=== PATIENT | female | born 1965 | race Caucasian/White ===

== ENCOUNTER 2018-03-22 11:32 | Outpatient (CLI) | payer OTHER | END 2018-03-22 11:33 | disposition home or self-care (01) | LOC: BICMAMMO 11:32 | PROVIDERS: ATTEND Obstetrics & Gynecology | DX: Z12.31 Encounter for screening mammogram for malignant neoplasm of breast (principal); R92.1 Mammographic calcification found on diagnostic imaging of breast | CPT/HCPCS: 77063; 77067 ==

== ENCOUNTER 2019-02-16 13:56 | Inpatient (IN) | payer OTHER ==
[2019-02-16 14:28] LABS: #Eosinphils 0.1 thou/uL (0.0-0.7); #Lymphocytes 2.2 thou/uL (1.20-3.40); #Monocytes 1.6 thou/uL (0.11-0.59); #Neutrophils 13.1 thou/uL (1.40-6.50); %Basophils 0.1 % (0.0-1.0); %Eosinophils 0.3 % (0.0-10.0); %Lymphocytes 12.8 % (21.0-51.0); %Monocytes 9.4 % (0.0-10.0); %Neutrophils 77.3 % (42.0-75.0); Hemoglobin 14.6 g/dL (12.0-16.0); Mean Corpuscular HGB CONC 33.5 g/dL (32.0-36.0); Mean Corpuscular Hemoglobin 29.4 pg (27.0-31.0); Mean Corpuscular Volume 87.7 fL (78.0-98.0); Mean Platelet Volume 8.8 fL (7.4-10.4); Platelet Count 243 thou/uL (130-400); RBC Distribution Width 12.2 % (11.5-14.5); Red Blood Cell (RBC) Count 4.96 mill/uL (4.20-5.40)
[2019-02-16 14:50] LABS: ALT (SGPT) 15 U/L (8-55); AST (SGOT) 11 U/L (5-34); Albumin 4.4 g/dL (3.5-5.0); Alkaline Phosphatase 132 U/L (40-150); Anion Gap 12 mmol/L (10-20); BUN (Urea Nitrogen) 8 mg/dL (9.8-20.1); Bilirubin, Total 0.8 mg/dL (0.2-1.2); Calc. Creatinine Clearance 0 mL/min (70-130); Calcium 9.4 mg/dL (7.8-10.44); Carbon Dioxide 26 mmol/L (22-29); Chloride 102 mmol/L (98-107); Estimated GFR-MDRD 87; Globulin 3.1 g/dL (2.4-3.5); Glucose 99 mg/dL (70-105); Lipase 16 U/L (8-78); Potassium 3.7 mmol/L (3.5-5.1); Protein, Total 7.5 g/dL (6.0-8.3); Sodium 136 mmol/L (136-145)
[2019-02-16 15:00] LABS: Pregnancy Test - Urine (BHCG) Negative (Negative); Pregu Control Background? CLEAR/WHITE (CLR/WHITE); Pregu Control Bar Appear? YES (CONTROL BAR)
[2019-02-16 15:01] LABS: Bilirubin Negative (Negative); Blood, Urine Trace (Negative); Clarity Clear (Clear); Glucose, Urine (Dipstick) Normal (Negative); Leukocyte Negative Leu/uL (Negative); Nitrite Negative (Negative); Protein, Urine (Dipstick) 30 mg/dL (Neg-Trace); Specific Gravity 1.031 (1.002-1.036); Squamous Epithelial 0-3 HPF (0-3); Urobilinogen Normal mg/dL (Less than 2); WBC/HPF 0-3 HPF (0-3)
[2019-02-16 15:02] LABS: Bacteria/HPF 1+ HPF (None Seen)
--- NOTE | 2019-02-16 15:38 | CT ---
EXAM: Abdomen and pelvic CT scan with contrast: HISTORY: Abdominal pain and fever COMPARISON: None FINDINGS: The visualized lung bases are clear. Liver: Unremarkable. Gallbladder:Unremarkable. Pancreas:Unremarkable Spleen:Unremarkable. Adrenal glands:Unremarkable. Kidneys:No renal calculus or acute obstruction. No solid or cystic renal mass. Colonic diverticulosis particularly in the sigmoid colon with some focal bowel wall thickening and pe ricolonic fat stranding evidence for acute diverticulitis without evidence for free intraperitoneal air or drainable abscess. No CT evidence for acute appendicitis. The urinary bladder is unremarkable. Reproductive system:Unremarkable No abscess, adenopathy, or abnormal fluid collection within the abdomen or pelvis. IMPRESSION: Sigmoid colon diverticulitis without evidence for drainable abscess or abnormal extraluminal gas or f ree intraperitoneal air.
[2019-02-16] MEDS ORDERED: Morphine 4 MG/ML VIAL ONE (15:56)
[2019-02-16] MEDS ORDERED: Ondansetron PF 4 MG/2 ML Vial ONE (15:57)
[2019-02-16] MEDS ORDERED: metroNIDAZOLE 500 MG in Premix Bag 1 BAG IVPB SCH (16:15)
--- NOTE | 2019-02-16 16:19 | PDOC.FPRHP ---
- History of Present Illness Chief Complaint: abdominal pain History of Present Illness: Ms. Vegas presents to ED after 1 week of intermittent abdominal pain yesterday pain became more constant, 7/10 releived by tylenol. associated fever reported as high as 102. not tolerating much food today, has been drinking water ok, reports normal bowel movements recently. no episodes like this before , no hx of abdominal surgery or colonoscopy. denies chills, syncope, dysuria, or hematochezia ED Course: cbc, cmp, CT ab/pel levaquin, metronidazole, 1L NS, zofran, morphine - Allergies/Adverse Reactions Allergies Allergy/AdvReac Type Severity Reaction Status Date / Time No Known Allergies Allergy Unverified 02/16/19 16:00 - Home Medications Medication Instructions Recorded Confirmed Type FLUoxetine HCl [Fluoxetine HCl] 20 mg PO Q2DAYS 02/16/19 02/16/19 History - History PMHx: depression PSHx: none FHx:NC Social: no TAD - Review of Systems General: reports: fever/chills, weight/appetite/sleep changes Eyes: denies: vision changes ENT: denies: nasal congestion Respiratory: denies: cough, shortness of breath Cardiovascular: denies: chest pain, edema Gastrointestinal: reports: nausea, abdominal pain. denies: diarrhea, constipation Genitourinary: denies: incontinence, dysuria Skin: denies: rashes Musculoskeletal: denies: pain, tenderness Neurological: denies: numbness, syncope - Vital signs 130/74, Pulse: 94, Resp: 17 (Non-Labored), Temp: 98.8 (Oral), Pain: 8, O2 sat: 100 on Room Air - Physical Exam Constitutional: NAD HEENT: normocephalic and atraumatic, grossly normal vision, grossly normal hearing Neck: trachea midline Heart: no edema Lungs: no retractions Abdomen: soft, no masses/distention, other (ttp) Musculoskeletal: normal structure, normal tone Neurological: no focal deficit, CN II-XII intact Skin: no rash/lesions, good turgor Heme/Lymphatic: no unusual bruising or bleeding Psychiatric: normal mood and affect FMR H&P: Results - Labs Result Diagrams: 02/16/19 14:14 02/16/19 14:14 Lab results: WBC 17.0 thou/uL (4.8-10.8) H 02/16/19 14:14 Hgb 14.6 g/dL (12.0-16.0) 02/16/19 14:14 Hct 43.5 % (36.0-47.0) 02/16/19 14:14 MCV 87.7 fL (78.0-98.0) 02/16/19 14:14 Plt Count 243 thou/uL (130-400) 02/16/19 14:14 Neutrophils % 77.3 % (42.0-75.0) H 02/16/19 14:14 Sodium 136 mmol/L (136-145) 02/16/19 14:14 Potassium 3.7 mmol/L (3.5-5.1) 02/16/19 14:14 Chloride 102 mmol/L (98-107) 02/16/19 14:14 Carbon Dioxide 26 mmol/L (22-29) 02/16/19 14:14 BUN 8 mg/dL (9.8-20.1) L 02/16/19 14:14 Creatinine 0.70 mg/dL (0.6-1.1) 02/16/19 14:14 Glucose 99 mg/dL (70-105) 02/16/19 14:14 Calcium 9.4 mg/dL (7.8-10.44) 02/16/19 14:14 Total Bilirubin 0.8 mg/dL (0.2-1.2) 02/16/19 14:14 AST 11 U/L (5-34) 02/16/19 14:14 ALT 15 U/L (8-55) 02/16/19 14:14 Alkaline Phosphatase 132 U/L (40-150) 02/16/19 14:14 Serum Total Protein 7.5 g/dL (6.0-8.3) 02/16/19 14:14 Albumin 4.4 g/dL (3.5-5.0) 02/16/19 14:14 Lipase 16 U/L (8-78) 02/16/19 14:14 Urine Ketones Negative mg/dL (Negative) 02/16/19 14:13 Urine Blood Trace (Negative) A 02/16/19 14:13 Urine Nitrite Negative (Negative) 02/16/19 14:13 Ur Leukocyte Esterase Negative Ranjana/uL (Negative) 02/16/19 14:13 Urine RBC 4-6 HPF (0-3) A 02/16/19 14:13 Urine WBC 0-3 HPF (0-3) 02/16/19 14:13 Ur Squamous Epith Cells 0-3 HPF (0-3) 02/16/19 14:13 Urine Bacteria 1+ HPF (None Seen) 02/16/19 14:13 FMR H&P: A/P - Problem List (1) Diverticulitis Current Visit: Yes Status: Acute Code(s): K57.92 - DVTRCLI OF INTEST, PART UNSP, W/O PERF OR ABSCESS W/O BLEED (2) Leukocytosis Current Visit: Yes Status: Acute Code(s): D72.829 - ELEVATED WHITE BLOOD CELL COUNT, UNSPECIFIED (3) Depression Current Visit: Yes Status: Acute Code(s): F32.9 - MAJOR DEPRESSIVE DISORDER , SINGLE EPISODE, UNSPECIFIED - Plan Diverticulitis - wbc elevation, reported high fever, CT findings c/w - s/p levaquin/metronidazole and 1L NS in ED - transition to single agent- zosyn - IVF, clear liquid diet - pain control Leukocytosis - likely 2/2 above - repeat cbc in am depression - continue home meds ppx: lovenox pcp: rosita dispo: iv abx therapy for 48hrs, FMR H&P: Upper Level - Plan Date/Time: 02/16/19 1616 I, [], have evaluated this patient and agree with findings/plan as outlined by quality assurance intern resident. Pertinent changes/additions are listed here. Addendum - Attending - Attending Attestation Date/Time: 02/16/191810 I personally evaluated the patient and discussed the management with Dr. Ashby I agree with the History, Examination, Assessment and Plan documented above with any addition or exceptions noted below- 53 yo female with h/o depression presents c/o diffuse abdominal pain for the last week with associated fever to 102.6 at night. Denies any N/V. Has had some constipation which is unusual for her and states that she feels bloated. Has not had similar pain in the past though she does report that the pain has been intermittent for last 2-3 months and this episode was much worse ritika past. Has never had a colonoscopy. PMH/PSH/ Meds/SH reviewed and agree with resident's documentation. T98.8 P 94 BP 130/ 74 RR17 Exam repeated by me and agree with resident's findings. Labs: WBC=17.0 , H/H 14.6/43.5, Kup=566, Fq=344, K=3.7, Ga=268, CO2=26, BUN/Cr= 8/0.70, Gluc=99 , AST/ALT=11/15, CT abd/pelvis- sigmoid diverticulitis; no evidence of abscess. A/P: 1) Diverticulitis- Place in obs; continue cipro and flagyl. Low residual diet.
[2019-02-16] MEDS ORDERED: metroNIDAZOLE 500 MG/100 ML BAG ONE (16:21)
[2019-02-16] MEDS ORDERED: ISOVUE-370 76%-LOCM 1 ML ONE (16:41)
[2019-02-16] MEDS ORDERED: Ondansetron PF 4 MG/2 ML Vial IVP PRN (17:37)
[2019-02-16] MEDS ORDERED: Ondansetron ODT 4 MG TAB PO PRN (17:37)
[2019-02-16] MEDS ORDERED: Morphine 2 MG/ML SYRINGE SLOW IVP PRN (17:37)
[2019-02-16] MEDS ORDERED: Acetaminophen 325 MG TAB PO PRN (17:37)
[2019-02-16] MEDS: Ibuprofen 800 MG TAB PO PRN (17:57)
[2019-02-16] MEDS: Lactated Ringer's 1,000 ML IV SCH (18:01)
[2019-02-16 18:22] VITALS: BMI 31.5
[2019-02-16] MEDS: Piperacillin/Tazobactam 3.375 GM in Sodium Chloride 0.9% 100 ML IVPB SCH (19:15)
[2019-02-17] MEDS: Piperacillin/Tazobactam 3.375 GM in Sodium Chloride 0.9% 100 ML IVPB SCH ×2 (00:34→06:47)
[2019-02-17] MEDS: Lactated Ringer's 1,000 ML IV SCH (02:59)
--- NOTE | 2019-02-17 05:55 | PDOC.FM ---
- Subjective Subjective: Patient is doing well this morning. She still endorses abdominal tenderness. She states she is passing gas, sometimes with diarrhea. She denies nausea, vomiting, chest pain, shortness of breath. - Objective MAR Reviewed: Yes Vital Signs & Weight: Vital Signs (12 hours) Temp Pulse Resp BP Pulse Ox 02/17/19 03:56 97.8 F 79 18 118/78 96 02/17/19 00:10 98.2 F 88 18 109/72 95 02/16/19 20:00 96 02/16/19 19:27 98.3 F 93 20 111/62 96 Weight Weight 91.308 kg Result Diagrams: 02/17/19 05:23 02/17/19 05:23 Phys Exam - Physical Examination Constitutional: NAD HEENT: moist MMs, sclera anicteric Neck: no nodes, supple, full ROM Respiratory: no wheezing, no rales, no rhonchi, clear to auscultation bilateral Cardiovascular: RRR, no significant murmur, no rub Gastrointestinal: soft, no distention TTP in lower quadrants. Hypoactive bowel sounds. Musculoskeletal: no edema, pulses present Neurological: non-focal, moves all 4 limbs Psychiatric: normal affect, A&O x 3 Skin: no rash, cap refill <2 seconds Dx/Plan - Plan Plan: Diverticulitis wbc elevation, reported fever of 102.8, chills, CT findings consistent with diverticulitis. Received Cipro/Flagyl in the ED. The team yesterday opted for monotherapy with IV zosyn yesterday. However, we will transition back to Cipro/Flagyl today in hopes of sending her home with po antibiotics. IVF, clear liquid diet, advance as tolerated. pain control with tylenol and motrin. Leukocytosis likely 2/2 above repeat cbc in am Anxiety +/- Depression, chronic continue fluoxetine 20mg q OD. Dipso: Stable, inpatient VTE Pps: lovenox PCP: Yasir Cardosoum - Attending - Attending Attestation Date/Time: 02/17/19 0911 I personally evaluated the patient and discussed the management with Dr. Foss. I agree with the History, Examination, Assessment and Plan documented above with any addition or exceptions noted below. The patient has some abdominal distention and frequent diarrhea. Will transition to cipro and flagyl. Increase IV fluids.
[2019-02-17 06:06] LABS: #Eosinphils 0.2 thou/uL (0.0-0.7); #Monocytes 1.1 thou/uL (0.11-0.59); #Neutrophils 7.3 thou/uL (1.40-6.50); %Basophils 0.2 % (0.0-1.0); %Eosinophils 1.5 % (0.0-10.0); %Lymphocytes 18.8 % (21.0-51.0); %Neutrophils 69.4 % (42.0-75.0); Hemoglobin 12.8 g/dL (12.0-16.0); Mean Corpuscular HGB CONC 33.5 g/dL (32.0-36.0); Mean Corpuscular Hemoglobin 30.1 pg (27.0-31.0); Mean Corpuscular Volume 89.8 fL (78.0-98.0); Mean Platelet Volume 9.1 fL (7.4-10.4); Platelet Count 194 thou/uL (130-400); RBC Distribution Width 12.3 % (11.5-14.5); Red Blood Cell (RBC) Count 4.27 mill/uL (4.20-5.40); White Blood Cell (WBC) Count 10.5 thou/uL (4.8-10.8)
[2019-02-17 06:32] LABS: ALT (SGPT) 13 U/L (8-55); AST (SGOT) 11 U/L (5-34); Albumin 3.6 g/dL (3.5-5.0); Alkaline Phosphatase 103 U/L (40-150); Anion Gap 14 mmol/L (10-20); BUN (Urea Nitrogen) 7 mg/dL (9.8-20.1); Bilirubin, Total 0.7 mg/dL (0.2-1.2); Calc. Creatinine Clearance 133 mL/min (70-130); Calcium 8.7 mg/dL (7.8-10.44); Carbon Dioxide 26 mmol/L (22-29); Chloride 106 mmol/L (98-107); Estimated GFR-MDRD 88; Globulin 2.5 g/dL (2.4-3.5); Glucose 93 mg/dL (70-105); Potassium 4.5 mmol/L (3.5-5.1); Protein, Total 6.1 g/dL (6.0-8.3); Sodium 141 mmol/L (136-145)
[2019-02-17] MEDS: Ibuprofen 800 MG TAB PO PRN ×2 (08:41→16:49)
[2019-02-17] MEDS: Enoxaparin Sodium 40 MG/0.4 ML SYRINGE SC SCH ×2 (08:41→08:43)
[2019-02-17] MEDS ORDERED: Cipro 250 MG TAB PO SCH ×2 (09:53→21:00)
[2019-02-17] MEDS ORDERED: metroNIDAZOLE 500 MG TAB PO SCH ×3 (09:53→15:00)
[2019-02-17] MEDS ORDERED: Ciprofloxacin 500 MG TAB PO SCH (10:15)
[2019-02-17] MEDS: Sodium Chloride 0.9% 1,000 ML IV SCH ×2 (11:19→21:10)
[2019-02-17] MEDS: Lactinex Tablet PO SCH (11:19)
[2019-02-17] MEDS: FLUoxetine HCl 20 MG CAP PO SCH (11:53)
[2019-02-17] MEDS: metroNIDAZOLE 500 MG TAB PO SCH ×2 (15:35→21:11)
[2019-02-17] MEDS: Ciprofloxacin 500 MG TAB PO SCH (21:11)
[2019-02-18] MEDS: Ciprofloxacin 500 MG TAB PO SCH ×2 (05:51→20:03)
[2019-02-18] MEDS: Sodium Chloride 0.9% 1,000 ML IV SCH ×2 (05:54→16:45)
--- NOTE | 2019-02-18 05:57 | PDOC.FM ---
- Subjective Subjective: Ms. Vegas is doing well this morning, she reports decreasing abdominal pain and about the same amount of diarrhea as yesterday. She overall is feeling slightly better. She denies nausea, vomiting, and is tolerating food well. She ate grilled cheese and pizza last night. She is tolerating oral antibiotics and has not required pain medication. - Objective MAR Reviewed: Yes Vital Signs & Weight: Vital Signs (12 hours) Temp Pulse Resp BP Pulse Ox 02/17/19 20:00 94 L 02/17/19 19:23 97.9 F 84 18 123/77 94 L Weight Weight 91.308 kg I&O: 02/16/19 02/17/19 02/18/19 06:59 06:59 06:59 Intake Total 1549 Balance 1549 Result Diagrams: 02/17/19 05:23 02/17/19 05:23 Phys Exam - Physical Examination Constitutional: NAD HEENT: moist MMs, sclera anicteric Neck: supple, full ROM Respiratory: no wheezing, no rales, no rhonchi, clear to auscultation bilateral Cardiovascular: RRR, no significant murmur, no rub Gastrointestinal: soft, non-tender, positive bowel sounds mild distention, she says this may be normal for her. Musculoskeletal: no edema, pulses present Neurological: non-focal, normal sensation, moves all 4 limbs Psychiatric: normal affect, A&O x 3 Skin: no rash, normal turgor Dx/Plan - Plan Plan: Plan: Diverticulitis Cipro/Flagyl po Received 1 dose of Cipro/Flagyl in the ED IV. Received 3 IV doses of Zosyn. pain control with tylenol and motrin. NS @ 100mL/hr. Probiotics for diarrhea. Will likely discharge today with po antibiotics and follow up with PCP next week. Leukocytosis, resolved Anxiety, chronic continue fluoxetine 20mg q OD. Dipso: Stable, inpatient VTE Pps: lovenox PCP: Yasir Alcaraz - Attending - Attending Attestation Date/Time: 02/18/191916 I personally evaluated the patient and discussed the management with Dr. Foss. I agree with the History, Examination, Assessment and Plan documented above with any addition or exceptions noted below. The patient had 10 episodes of diarrhea in a few hours this morning. Getting stool studies. Will continue iv fluids. Likely home tomorrow if infectious diarrhea is ruled out.
[2019-02-18] MEDS: Lactinex Tablet PO SCH (08:15)
[2019-02-18] MEDS: metroNIDAZOLE 500 MG TAB PO SCH ×3 (08:15→20:47)
[2019-02-18] MEDS: Enoxaparin Sodium 40 MG/0.4 ML SYRINGE SC SCH (08:18)
[2019-02-19] MEDS: Ciprofloxacin 500 MG TAB PO SCH (05:36)
--- NOTE | 2019-02-19 05:48 | PDOC.FM ---
- Subjective Subjective: Patient states she is feeling much better this morning. No more episode of diarrhea overnight. Was able to tolerate PO intake of solid foods last night for dinner with mild nausea. No complaints voiced this morning. - Objective Vital Signs & Weight: Vital Signs (12 hours) Temp Pulse Resp BP Pulse Ox 02/18/19 19:30 98.3 F 83 20 133/69 94 L Weight Weight 91.308 kg I&O: 02/17/19 02/18/19 02/19/19 06:59 06:59 06:59 Intake Total 1549 2700 Balance 1549 2700 Result Diagrams: 02/17/19 05:23 02/17/19 05:23 Phys Exam - Physical Examination Constitutional: NAD HEENT: moist MMs, sclera anicteric Neck: no JVD, supple, full ROM Respiratory: no wheezing, no rales, no rhonchi, clear to auscultation bilateral Cardiovascular: RRR, no significant murmur Gastrointestinal: soft, no distention, positive bowel sounds mildly TTP over LLQ with no guarding or rebound Musculoskeletal: no edema, pulses present Neurological: normal sensation, moves all 4 limbs Psychiatric: normal affect, A&O x 3 Skin: no rash, normal turgor Dx/Plan (1) Anxiety Code(s): F41.9 - ANXIETY DISORDER, UNSPECIFIED Status: Acute (2) Diverticulitis Code(s): K57.92 - DVTRCLI OF INTEST, PART UNSP, W/O PERF OR ABSCESS W/O BLEED Status: Acute (3) Leukocytosis Code(s): D72.829 - ELEVATED WHITE BLOOD CELL COUNT, UNSPECIFIED Status: Acute Qualifiers: Leukocytosis type: unspecified Qualified Code(s): D72.829 - Elevated white blood cell count, unspecified - Plan Plan: Patient is a 53yo Female with PMHx of Depression who presents with abdominal pain: #Diverticulitis -Cipro & Flagyl po -Received 1 dose of Cipro/Flagyl in the ED IV. Received 3 IV doses of Zosyn. -pain control with tylenol and motrin. -NS @ 100mL/hr. -Probiotics for diarrhea. -Stool studies negative for infectious organisms, FOBT positive likely d/t diverticulitis #Leukocytosis, resolved #Anxiety, chronic -continue home Fluoxetine 20mg q OD. Code: FULL Diet: Regular as of 02/17 VTE Pps: lovenox PCP: Yasir Dispo: Stable, admitted to inpatient with likely discharge home today with po antibiotics and follow up with PCP next week. Addendum - Attending - Attending Attestation Date/Time: 02/19/19 0690 I personally evaluated the patient and discussed the management with Dr. Gunn. I agree with the History, Examination, Assessment and Plan documented above with any addition or exceptions noted below. Pt's diarrhea has improved. She is tolerating a diet. Ready to d/c home on cipro and flagyl
[2019-02-19] MEDS: FLUoxetine HCl 20 MG CAP PO SCH (08:59)
[2019-02-19] MEDS: Lactinex Tablet PO SCH (08:59)
[2019-02-19] MEDS: metroNIDAZOLE 500 MG TAB PO SCH (08:59)
[2019-02-19] MEDS: Enoxaparin Sodium 40 MG/0.4 ML SYRINGE SC SCH (08:59)
[2019-02-19 11:37] VITALS: BP 136/79; TEMP 98.5
--- NOTE | 2019-02-22 10:14 | DIS ---
DATE OF ADMISSION: 02/16/2019 DATE OF DISCHARGE: 02/19/2019 RESIDENT: Skylar Foss MD ADMITTING ATTENDING: Heidi Vanegas MD. CONSULTS: None. PROCEDURES: None. PRIMARY DIAGNOSIS: Diverticulitis. SECONDARY DIAGNOSIS: Anxiety. DISCHARGE MEDICATIONS: 1. Fluoxetine 20 mg every other day. 2. Ciprofloxacin 500 mg b.i.d. for 5 days. 3. Flagyl 500 mg t.i.d. for 5 days. 4. Lactobacillus one tablet p.o. daily. DISCONTINUED MEDICATIONS: None. HISTORY OF PRESENT ILLNESS: Ms. Vegas is a previously healthy 53-year-old female who came to the ER for one week of increasing intermittent abdominal pain which the day prior to admission became constant, 7/10, with associated fever as high as 102 at home. She is not tolerating the food well, but was able to tolerate liquids. She reports normal bowel movement; however, she has a longstanding history of chronic diarrhea for which she does not . She has never had symptoms like this before. No history of abdominal surgeries. No prior colonoscopy. On admission, her white count was 17, otherwise unremarkable. CT abdomen and pelvis showed sigmoid colon diverticulitis without evidence of abscess or extraluminal gas or free air. The patient was given IV antibiotics in hospital and transitioned to p.o. antibiotics before discharge. DISPOSITION: Stable. DISCHARGE INSTRUCTIONS: 1. Location: Home. 2. Diet: Regular. 3. Activity: Ad artemio. 4. Follow up with primary care physician in 1 week. Job ID: [id number]
--- NOTE | 2019-02-22 19:31 | PQF ---
[employer] Instructor Crystal Reports Winform Viewer MARYCARMEN GLASER KATHERINE MD [id number] [id number] CLINICAL DOCUMENTATION CLARIFICATION FORM: POST DISCHARGE Addendum to original discharge summary date: ____ Late entry note date: __ DATE: 02/22/19 ATTN: Adilene Akbar Please exercise your independent, professional judgment in responding to the clarification form. Clinical indicators are provided on the bottom of this form for your review Can you please further specify the type of diverticulitis base on the below indicators? Please check appropriate box(s): [ x ] Infectious diverticulitis [ ] Noninfectious diverticulitis [ ] Unspecified diverticulitis [ ] Other diagnosis please specify [ ] Unable to determine In addition, please specify: Present on Admission (POA): [ ] Yes [ ] No [ ] Unable to determine For continuity of documentation, please document condition throughout progress notes and discharge summary. Thank You. CLINICAL INDICATORS - SIGNS / SYMPTOMS / LABS Family H and P / pg.1- "1 week of intermittent abdominal pain" Family H and P 02/16 pg.1- "fever reports as high as102" Family H and P 02/16 pg.3- "Laboratory: WBC 17.0H" Family H and P 02/16 pg.3-"Leukocytosis" Family Med PN 02/17 pg.2 - "CT findings consistent with diverticulitis" Family Med PN 02/18 pg.3- "Infectious diarrhea is ruled out" RISK FACTORS Diverticulitis- Family Med PN 02/19 pg.2 Leukocytosis-Family H and P / pg.3 History of chronic diarrhea- DS pg.1 TREATMENTS: IV Fluids- AUG 21 Abdomen/Pelvis CT 02/16 Metronidazole 500mg Po-AUG 21 Ciprofloxacin 500mg Po- MAR9/5 (This form is maintained as a part of the permanent medical record) 2014 [employer] All Rights Reserved Afshin [email or web address] [not provided] MTDD
== END 2019-02-19 12:41 | disposition home or self-care (01) | DRG 392 ==
LOC: ERS 13:56 → T4-B 16:27
PROVIDERS: ADMIT Family Medicine; ATTEND Family Medicine
DX: K57.32 Diverticulitis of large intestine without perforation or abscess without bleeding (principal); F32.9 Major depressive disorder, single episode, unspecified; D72.829 Elevated white blood cell count, unspecified; F41.9 Anxiety disorder, unspecified; Z79.899 Other long term (current) drug therapy
CPT/HCPCS: 36415; 74177; 80053; 81003; 81015; 81025; 82274; 83630; 83690; 85025; 87045; 87046; 87324; 87328; 87329; 87427; 87449; 96361; 96365; 96375; J0744; J1650; J2270; J2405; J2543; J3490; Q9966

== ENCOUNTER 2019-03-23 11:00 | Outpatient (CLI) | payer OTHER ==
--- NOTE | 2019-03-23 11:38 | MMO ---
Bilateral MAMMO Bilat Screen [facility]. CLINICAL HISTORY: Patient is 53 years old and is seen for screening. The patient has no family history of breast cancer. The patient has no personal history of cancer. VIEWS: The views performed were: bilateral craniocaudal with tomosynthesis and bilateral mediolateral oblique with tomosynthesis. FILMS COMPARED: The present examination has been compared to prior imaging studies performed at [facility] on 09/21/2015, 03/21/2016, 03/19/2017 and 03/22/2018. This study has been interpreted with the assistance of computer-aided detection. MAMMOGRAM FINDINGS: There are scattered fibroglandular densities. There are no suspicious masses, suspicious calcifications, or new areas of architectural distortion. IMPRESSION: THERE IS NO MAMMOGRAPHIC EVIDENCE OF MALIGNANCY. A ROUTINE FOLLOW-UP MAMMOGRAM IN 1 YEAR IS RECOMMENDED. THE RESULTS OF THIS EXAM WERE SENT TO THE PATIENT. ACR BI-RADS Category 1 - Negative MAMMOGRAPHY NOTE: 1. A negative mammogram report should not delay a biopsy if a dominant of clinically suspicious mass is present. 2. Approximately 10% to 15% of breast cancers are not detected by mammography. 3. Adenosis and dense breasts may obscure an underlying neoplasm. Reported by: MICHAEL RAMIREZ MD Electonically Signed: [id number]
== END 2019-03-23 11:01 | disposition home or self-care (01) ==
LOC: BICMAMMO 11:00
PROVIDERS: ATTEND Obstetrics & Gynecology
DX: Z12.31 Encounter for screening mammogram for malignant neoplasm of breast (principal)
CPT/HCPCS: 77063; 77067

== ENCOUNTER 2020-03-27 11:04 | Outpatient (CLI) | payer OTHER ==
--- NOTE | 2020-03-27 11:52 | MMO ---
Bilateral MAMMO Bilat Screen [facility]. CLINICAL HISTORY: Patient is 54 years old and is seen for screening. The patient has no family history of breast cancer. The patient has no personal history of cancer. VIEWS: The views performed were: bilateral craniocaudal with tomosynthesis and bilateral mediolateral oblique with tomosynthesis. FILMS COMPARED: The present examination has been compared to prior imaging studies performed at [facility] on 03/21/2016, 03/19/2017, 03/22/2018 and 03/23/2019. This study has been interpreted with the assistance of computer-aided detection. MAMMOGRAM FINDINGS: There are scattered fibroglandular densities. There are no suspicious masses, suspicious calcifications, or new areas of architectural distortion. IMPRESSION: THERE IS NO MAMMOGRAPHIC EVIDENCE OF MALIGNANCY. A ROUTINE FOLLOW-UP MAMMOGRAM IN 1 YEAR IS RECOMMENDED. THE RESULTS OF THIS EXAM WERE SENT TO THE PATIENT. ACR BI-RADS Category 1 - Negative MAMMOGRAPHY NOTE: 1. A negative mammogram report should not delay a biopsy if a dominant of clinically suspicious mass is present. 2. Approximately 10% to 15% of breast cancers are not detected by mammography. 3. Adenosis and dense breasts may obscure an underlying neoplasm. Reported by: Laquita WEBER Electonically Signed: [id number]
== END 2020-03-27 11:05 | disposition home or self-care (01) ==
LOC: BICMAMMO 11:04
PROVIDERS: ATTEND Obstetrics & Gynecology
DX: Z12.31 Encounter for screening mammogram for malignant neoplasm of breast (principal)
CPT/HCPCS: 77063; 77067

== ENCOUNTER 2021-03-28 14:59 | Outpatient (CLI) | payer OTHER | END 2021-03-28 15:00 | disposition home or self-care (01) | LOC: BICMAMMO 14:59 | PROVIDERS: ATTEND Obstetrics & Gynecology | DX: Z12.31 Encounter for screening mammogram for malignant neoplasm of breast (principal) | CPT/HCPCS: 77063; 77067 ==

== ENCOUNTER 2023-05-15 10:33 | Outpatient (CLI) | payer OTHER | END 2023-05-15 10:34 | disposition home or self-care (01) | LOC: BICMAMMO 10:33 | PROVIDERS: ATTEND Obstetrics & Gynecology | DX: Z12.31 Encounter for screening mammogram for malignant neoplasm of breast (principal) | CPT/HCPCS: 77063; 77067 ==

== ENCOUNTER 2024-06-06 14:15 | Outpatient (CLI) | payer OTHER | END 2024-06-06 14:16 | disposition home or self-care (01) | LOC: BICMAMMO 14:15 | PROVIDERS: ATTEND Specialist | DX: Z12.31 Encounter for screening mammogram for malignant neoplasm of breast (principal) | CPT/HCPCS: 77063; 77067 ==

== ENCOUNTER 2025-06-13 11:07 | Outpatient (CLI) | payer OTHER | END 2025-06-13 11:08 | disposition home or self-care (01) | LOC: BICMAMMO 11:07 | PROVIDERS: ATTEND Specialist | DX: Z12.31 Encounter for screening mammogram for malignant neoplasm of breast (principal); R92.333 Mammographic heterogeneous density, bilateral breasts | CPT/HCPCS: 77063; 77067 ==